=== PATIENT | female | born 1955 | race Caucasian/White ===

== ENCOUNTER 2017-01-02 13:31 | Emergency (ER) | payer OTHER ==
[2017-01-02] MEDS ORDERED: NS 0.9% 1000 ML* 1,000 ML IV ONE (15:00)
[2017-01-02] MEDS ORDERED: Ondansetron INJ* 2 MG/ML VIAL IV ONE ×2 (15:00→17:26)
--- NOTE | 2017-01-02 15:51 | RAD ---
HISTORY: Abdominal pain, recent thoracentesis COMPARISONS: None VIEWS: Frontal supine and upright views of the abdomen. FINDINGS: BOWEL: There is a nonspecific bowel gas pattern, with nondilated small bowel gas noted. There is minimal stool within the colon. CALCULI: Pelvic calcifications are noted consistent with fibroid uterus. BONES AND SOFT TISSUES: There are no osseous abnormalities. OTHER FINDINGS: There are small bilateral pleural effusions There is no subphrenic gas. IMPRESSION: SMALL BILATERAL PLEURAL EFFUSIONS. NONSPECIFIC BOWEL GAS PATTERN.
[2017-01-02 16:07] VITALS: BP 155/73
[2017-01-02 16:07] LABS: Hematocrit 34 % (35-47); Hemoglobin 11.6 g/dl (12.0-16.0); Mean Corpuscular HGB Conc 34 g/dl (31-36); Mean Corpuscular Hemoglobin 28 pg (27-31); Mean Corpuscular Volume 81 fL (80-97); Mean Platelet Volume 8 um3 (7.4-10.4); Red Blood Count 4.22 10^6/ul (4.0-5.4); Red Cell Distribution Width 13 % (10.5-15); White Blood Count 6.5 10^3/ul (3.5-10.8)
[2017-01-02 16:18] LABS: Albumin 3.2 g/dL (3.2-5.2); C Reactive Protein 21.58 mg/L (< 5.00); Calcium 9.3 mg/dL (8.6-10.3); EGFR Non-African American 32.6 (>60); Globulin 3.4 g/dL (2-4); Potassium 3.2 mmol/L (3.5-5.0); Total Bilirubin 0.3 mg/dL (0.2-1.0); Total Protein 6.6 g/dL (6.4-8.9)
[2017-01-02 17:05] LABS: Magnesium 1.8 mg/dL (1.9-2.7)
[2017-01-02] MEDS ORDERED: Magnesium Oxide TAB* 400 MG PO ONE (17:26)
[2017-01-02] MEDS: Potassium Chlor TAB* 20 MEQ TAB.ER PO ONE ×2 (17:40→19:23)
[2017-01-02] MEDS ORDERED: Clotrimazole 1% CREAM* 30 GM TOPICAL ONE (18:11)
[2017-01-02] MEDS ORDERED: Metoclopramide IV* 5 MG/ML 2 ML VIAL IV ONE (18:13)
--- NOTE | 2017-01-04 19:07 | ED ---
Arnulfo Chanel Auryana, scribed for Amos Trejo MD on 01/02/17 at 1459 . GI/ HPI - HPI Summary HPI Summary: 61 year old female presents with N/V/D stating 1 day ago - s/p being discharged. She reports that the diarrhea is yellow in color. She also has a rash starting 2 days ago- advised by physician to stop taking Levaquin. She denies any unusual foods. Patient reports that she was recently discharged on Tuesday from the hospital with Levaquin abx - admitted for bacterial PNA and PNX/ pleural effusion. PMHx is significant for HTN, right temporal lobectomy (2006 for seizures - on Lamotrigine prophylaxis- no seizure in 10 years), hypothyroid , cholecystectomy, and . FHx is significant for HTN. She denies any tobacco or alcohol use. PCP is in [place] - History of Current Complaint Chief Complaint: EDNauseaVomitDiarrh Time Seen by Provider: 01/02/17 14:40 Stated Complaint: VOMITING Hx Obtained From: Patient Onset/Duration: Started Days Ago - 1, Still Present Timing: Constant Severity: Mild Current Severity: Mild Pain Intensity: 0 - no abdominal pain Associated Signs and Symptoms: Positive: Nausea, Vomiting, Diarrhea, Other: - rash - Allergy/Home Medications Allergies/Adverse Reactions: Allergies Allergy/AdvReac Type Severity Reaction Status Date / Time No Known Allergies Allergy Verified 01/02/17 13:35 PMH/Surg Hx/FS Hx/Imm Hx Endocrine/Hematology History: Reports: Hx Thyroid Disease - hypothyroid Cardiovascular History: Reports: Hx Hypertension Neurological History: Reports: Hx Seizures - none since right temporal lobectomy - Surgical History Surgery Procedure, Year, and Place: cholecystectomy, Infectious Disease History: No Infectious Disease History: Denies: Traveled Outside the [place] in Last 30 Days - Family History Known Family History: Positive: Hypertension - Social History Occupation: Employed Full-time Lives: With Family Alcohol Use: None Substance Use Type: Reports: None Smoking Status (MU): Never Smoked Tobacco Review of Systems Constitutional: Negative Eyes: Negative ENT: Negative Cardiovascular: Negative Respiratory: Negative Positive: Vomiting, Diarrhea, Nausea Genitourinary: Negative Musculoskeletal: Negative Positive: Rash Neurological: Negative Psychological: Normal All Other Systems Reviewed And Are Negative: Yes Physical Exam - Summary Physical Exam Summary: VITAL SIGNS: Reviewed. GENERAL: Patient is a well-developed and nourished female who is lying comfortable in the stretcher. Patient is not in any acute respiratory distress. HEAD AND FACE: Normocephalic and atraumatic. EYES: PERRLA, EOMI x 2, No injected conjunctiva. EARS: Hearing grossly intact. Ear canals and tympanic membranes are WNL. MOUTH: Oropharynx and nsasal passages dry but otherwise within normal limits. NECK: Supple, trachea is midline, no adenopathy, no JVD. CHEST: Symmetric, no tenderness at palpation LUNGS: Clear to auscultation bilaterally. No wheezing or crackles. CVS: RRR, S1 and S2 present, no murmurs or gallops appreciated. ABDOMEN: Soft, non-tender. No signs of distention. Positive bowel sounds. No rebound no guarding, and no masses palpated. No abdominal bruit or pulsations. EXTREMITIES: FROM in all major joints, no edema, no cyanosis or clubbing. NEURO: Alert and oriented x 3. No acute neurological deficits. Speech is normal. SKIN: Dry and warm, vesicular rasher underneath the left breast- looks as if it is starting to dry. Triage Information Reviewed: Yes Vital Signs On Initial Exam: Initial Vitals Temp Pulse Resp BP Pulse Ox 98.4 F 74 18 154/75 98 01/02/17 13:35 01/02/17 13:35 01/02/17 13:35 01/02/17 13:35 01/02/17 13:35 Vital Signs Reviewed: Yes - Martir Coma Scale Coma Scale Total: 15 Diagnostics - Vital Signs Vital Signs Temp Pulse Resp BP Pulse Ox 01/02/17 13:35 98.4 F 74 18 154/75 98 - Laboratory Lab Results: Lab Results 01/02/17 01/02/17 01/02/17 Range/Units 15:50 15:50 15:50 WBC 6.5 (3.5-10.8) 10^3/ul RBC 4.22 (4.0-5.4) 10^6/ul Hgb 11.6 L (12.0-16.0) g/dl Hct 34 L (35-47) % MCV 81 (80-97) fL MCH 28 (27-31) pg MCHC 34 (31-36) g/dl RDW 13 (10.5-15) % Plt Count 360 (150-450) 10^3/ul MPV 8 (7.4-10.4) um3 Neut % (Auto) 68.7 (38-83) % Lymph % (Auto) 20.1 L (25-47) % [place] % (Auto) 8.2 (1-9) % Eos % (Auto) 2.4 (0-6) % Baso % (Auto) 0.6 (0-2) % Absolute Neuts (auto) 4.5 (1.5-7.7) 10^3/ul Absolute Lymphs (auto) 1.3 (1.0-4.8) 10^3/ul Absolute Monos (auto) 0.5 (0-0.8) 10^3/ul Absolute Eos (auto) 0.2 (0-0.6) 10^3/ul Absolute Basos (auto) 0 (0-0.2) 10^3/ul Absolute Nucleated RBC 0.01 10^3/ul Nucleated RBC % 0.1 Sodium 139 (133-145) mmol/L Potassium 3.2 L (3.5-5.0) mmol/L Chloride 101 (101-111) mmol/L Carbon Dioxide 26 (22-32) mmol/L Anion Gap 12 H (2-11) mmol/L BUN 8 (6-24) mg/dL Creatinine 1.61 H (0.51-0.95) mg/dL Est GFR ( Amer) 42.0 (>60) Est GFR (Non-Af Amer) 32.6 (>60) BUN/Creatinine Ratio 5.0 L (8-20) Glucose 92 (70-100) mg/dL Lactic Acid 0.9 (0.5-2.0) mmol/L Calcium 9.3 (8.6-10.3) mg/dL Magnesium 1.8 L (1.9-2.7) mg/dL Total Bilirubin 0.30 (0.2-1.0) mg/dL AST 40 H (13-39) U/L ALT 28 (7-52) U/L Alkaline Phosphatase 132 H (34-104) U/L C-Reactive Protein 21.58 H (< 5.00) mg/L Total Protein 6.6 (6.4-8.9) g/dL Albumin 3.2 (3.2-5.2) g/dL Globulin 3.4 (2-4) g/dL Albumin/Globulin Ratio 0.9 L (1-3) Amylase 32 (29-103) U/L Lipase 13 (11.0-82.0) U/L Result Diagrams: 01/02/17 15:50 01/02/17 15:50 Lab Statement: Any lab studies that have been ordered have been reviewed, and results considered in the medical decision making process. - Radiology ABD XR Xray Interpretation: Positive (See Comments) - IMPRESSION: SMALL BILATERAL PLEURAL EFFUSIONS. NONSPECIFIC BOWEL GAS PATTERN. Radiology Interpretation Completed By: Radiologist Re-Evaluation - Re-Evaluation First Eval Re-Evaluation Time: 17:31 - discussed labs and imaging GIGU Course/Dx - Course Assessment/Plan: Blood work WNL slight anemia, potassium 3.2 , mg 1.8, CRP 21.5. ABD XR - IMPRESSION: SMALL BILATERAL PLEURAL EFFUSIONS. NONSPECIFIC BOWEL GAS PATTERN. In ED course, the patient was given IV fluids, Zofran x2, and Reglan x1. Nausea is improving but patient continues to have diarrhea. Since patient just finished a course of Levaquin, we sent stool cultures to r/o C. diff. We are still awaiting for the C diff, fecal leukocyte and stool culture results and proper disposition based on those test results. At this point patient will be s/o to Dr. Tolentino at 19:00 pending results of those tests. Patient is hemodynamically stable and A&O x3. - Diagnoses Differential Diagnoses - Female: Gastritis, Gastroenteritis (Viral), Gastroenteritis (Bacterial), Urinary Tract Infection Provider Diagnoses: Abdominal pain Discharge - Discharge Plan Condition: Stable Disposition: HOME Discharge Disposition Comment: S/O TO DR. TOLENTINO AT 19:00 PENDING STOOL CULTURES, DISPOSITION, AND DX Patient Education Materials: Acute Nausea and Vomiting (ED), Acute Diarrhea (ED ) Referrals: [facility] [Outside] - 2 Days Additional Instructions: Please follow up with a PCP. The documentation as recorded by the Arnulfo gudino Auryana accurately reflects the service I personally performed and the decisions made by , Amos Trejo MD.
== END 2017-01-02 19:52 | disposition home or self-care (01) ==
LOC: ED 13:31
DX: R10.9 Unspecified abdominal pain (principal); R11.2 Nausea with vomiting, unspecified; R19.7 Diarrhea, unspecified; R21 Rash and other nonspecific skin eruption
CPT/HCPCS: 36415; 74020; 80053; 82150; 83605; 83630; 83690; 83735; 85025; 86140; 87045; 87046; 87493; 87899; 96374; 96375; 99283; A9270-GY; J2405